=== PATIENT | female | born 1995 | race Two or more races ===

== ENCOUNTER 2020-02-29 20:23 | Emergency (ER) | payer BC, MEDICAID ==
[~2020-02-29] VITALS: Ht 162.6 cm; Wt 54.4 kg
--- NOTE | 2020-02-29 20:35 | NUR ---
PT [facility] 85 AND [employer] FOR [facility] AT THE STREET. PT WAS AGITATED. DENIES SI/HI. RESPIRATIONS EVEN AND UNLABORED ON RA W/ NAD NOTED.PT CHANGED INTO GOWN, BELONGINGS PLACED INTO LOCKER. SITTER AT BEDSIDE FOR SAFETY. PT CONNECTED TO THE MONITOR AND POX.
[2020-02-29] MEDS ORDERED: IV NS 0.9% 1,000 ML BAG IV ONE (21:00)
[2020-02-29] MEDS ORDERED: LORAZEPAM INJ 2 MG/ML VIAL IV ONE (22:00)
[2020-02-29] MEDS ORDERED: LORAZEPAM INJ 2 MG/ML VIAL ONE (22:23)
--- NOTE | 2020-02-29 23:56 | NUR ---
PT STILL UNABLE TO PROVIDE URINE AT THIS TIME. PA MADE AWARE
--- NOTE | 2020-03-01 00:10 | NUR ---
patient signed waiver form.
--- NOTE | 2020-03-01 01:43 | NUR ---
PT ASLEEP. VSS. NO ACUTE DISTRESS NOTED. SITTER AT BEDSIDE FOR SAFETY. WILL CONTINUE TO MONITOR
--- NOTE | 2020-03-01 03:48 | NUR ---
PATIENT IS EATING FOOD AND DRINKING WATER, NO ASPIRATION NOTED.
--- NOTE | 2020-03-01 04:16 | NUR ---
PT RESTING COMFORTABLY IN BED. VSS. NO ACUTE DISTRESS NOTED. SITTER AT BEDSIDE FOR SAFETY
--- NOTE | 2020-03-01 05:49 | NUR ---
PT ASLEEP.VSS. NO ACUTE DISTRESS NOTED. SITTER AT BEDSIDE FOR SAFETY
[2020-03-01 06:37] VITALS: BP 125/80
--- NOTE | 2020-03-01 06:37 | NUR ---
Pt ok to discharge per dr Qiu. IV removed. Catheter intact and site benign. Pressure and 4x4 applied to site. No bleeding noted.Patient discharged to home in stable condition. Written and verbal after care instructions given. Patient verbalizes understanding of instruction.Patient is awake and alert to self, day, and place. Pt ambulatory with a steady gait
== END 2020-03-01 06:38 | disposition home or self-care (01) ==
LOC: EDBD 20:25 → ER 20:25
DX: F19.10 Other psychoactive substance abuse, uncomplicated (principal); Z59.0 Homelessness
CPT/HCPCS: 71045; 93005; 96374; 99283; J2060; J7030